=== PATIENT | female | born 1945 | race Caucasian/White ===

== ENCOUNTER 2022-01-20 12:08 | Inpatient (IN) | payer MEDICARE, MEDICAID ==
[~2022-01-20] VITALS: Ht 165 cm; Wt 58.9 kg
[~2022-01-20 12:08] MED LIST: AMOX500C2 PO; CODE118S2 PO; FLT05NA16 NSEACH; PRD20T PO
--- NOTE | 2022-01-20 12:36 | ED General ---
General Chief Complaint: Altered Mental Status Stated Complaint: AMS Nursing Triage Note: ARRIVED VIA EMS FROM [facility] WITH INCREASD AMS. PT ALERT TO PAINFULL STIMULI. SMELLS OF URINE. PT ARRIVED WITH A URINARY CATH. PT ROOMATE IS COVID POSTIVE. PT TESTED NEG FOR COVID TODAY. Source of Information: EMS, Residential Records Exam Limitations: Physical Impairments History of Present Illness Date Seen by Provider: Jan 20, 2022 Time Seen by Provider: 12:22 Initial Comments Patient is a 76-year-old female who presents by ambulance from [facility] with altered mental status. Over the last couple of days per correction report the patient has had decrease in mentation. She has not been eating or drinking. She presents with a Sigala catheter in place that looks like it needs to be exchanged. She is quite tachycardic in the 130's. She is altered, not conversant. She will say yes and no. She denies pain. Lungs are clear, respirations are even and unlabored. She is on nasal cannula oxygen at 92%. Abdomen is nondistended, not really soft. Bowel sounds are present. She has no edema in any of her extremities. She has a patchy area of erythema over the left hip/buttock. No open wounds. Oral mucosa does appear dry. Per report from the correction the patient's roommate has tested COVID- positive. The patient herself had a test today which was negative at the correction. Review of systems, HPI, past medical family and social history unobtainable from the patient secondary to altered mentation. Timing/Duration: 2-3 Days Severity: Severe Allergies and Home Medications Allergies Coded Allergies: No Known Drug Allergies (Unverified , 08/07/13) Patient Home Medication List Home Medication List Reviewed: Yes Amoxicillin (Amoxicillin) 500 Mg Capsule, 2 EACH PO BID Prescribed by: GABRIEL BROWNLEE on 08/07/13 0718 Codeine/Promethazine Hcl (Phenergan/Codeine Syrup) 120 Ml Syrup, 1-2 TSP PO Q8HR PRN Prescribed by: GABRIEL BROWNLEE on 08/07/13 0718 Fluticasone Propionate (Flonase 0.05% Nasal [place]) 16 Gm [place], 2 SPRAYS NSEACH DAILY Prescribed by: GABRIEL BROWNLEE on 08/07/13 0718 Prednisone (Prednisone) 20 Mg Tab, 20 MG PO DAILY Prescribed by: GABRIEL BROWNLEE on 08/07/13 0718 Review of Systems Review of Systems Constitutional: see HPI Unable to obtain from the patient secondary to altered mentation Past Dpavsgx-Hvmtub-Tmxjhw Hx Patient Social History Smoking Status: Unknown if Ever Smoked Substance use?: Unable to obtain Alcohol Use?: Unable to obtain Past Medical History Asthma, COPD Reproductive Disorders: No Sexually Transmitted Disease: No Physical Exam-Suspected Sepsis Physical Exam Vital Signs Vital Signs - First Documented 01/20/22 12:08 Temp 36.1 Pulse 124 Resp 16 B/P (MAP) 124/83 (97) Pulse Ox 98 O2 Delivery Room Air O2 Flow Rate 2.00 Capillary Refill : Less Than 3 Seconds Blood Pressure Mean: 97 Height, Weight, BMI Height: 5'6" Weight: 162lbs. oz. 73.430808af; 21.00 BMI Method:Stated General Appearance: Chronically ill, Thin HEENT: PERRL/EOMI, Other (Very dry oral mucosa; ) Neck: Normal Inspection Respiratory: Lungs Clear, Normal Breath Sounds, No Accessory Muscle Use, No Respiratory Distress Cardiovascular: Regular Rate, Rhythm, Normal Peripheral Pulses, Tachycardia (130) Gastrointestinal: Normal Bowel Sounds, Non Tender, Other (Abdomen is firm) Extremity: Normal Inspection Neurologic/Psychiatric: Disoriented, Other (Answers questions with "yes" or "no"; does not open eyes, does not seem to follow commands) Skin: warm/dry, pallor, rash (Patchy erythema noted to the left hip approximately 4 to 5 cm in diameter, no blisters or open skin wounds are visible); No ulcerations; other (Poor skin turgor) Focused Exam Lactate Level 01/20/22 12:15: Lactic Acid Level 0.96 Lactic Acid Level Progress/Results/Core Measures Suspected Sepsis SIRS Temperature: Pulse: 124 Respiratory Rate: 16 Laboratory Tests 01/20/22 12:15: White Blood Count 13.8H Blood Pressure 124 /83 Mean: 97 01/20/22 12:15: Lactic Acid Level 0.96 Laboratory Tests 01/20/22 12:15: Creatinine 0.79, INR Comment 1.1, Platelet Count 330, Total Bilirubin 0.6 Results/Orders Lab Results Laboratory Tests Test 01/20/22 12:15 01/20/22 19:59 Range/Units White Blood Count 13.8 H 4.3-11.0 10^3/uL Red Blood Count 4.69 3.80-5.11 10^6/uL Hemoglobin 13.9 11.5-16.0 g/dL Hematocrit 44 35-52 % Mean Corpuscular Volume 93 80-99 fL Mean Corpuscular Hemoglobin 30 25-34 pg Mean Corpuscular Hemoglobin Concent 32 32-36 g/dL Red Cell Distribution Width 16.8 H 10.0-14.5 % Platelet Count 330 130-400 10^3/uL Mean Platelet Volume 11.1 9.0-12.2 fL Immature Granulocyte % (Auto) 0 % Neutrophils (%) (Auto) 76 H 42-75 % Lymphocytes (%) (Auto) 11 L 12-44 % Monocytes (%) (Auto) 12 0-12 % Eosinophils (%) (Auto) 1 0-10 % Basophils (%) (Auto) 0 0-10 % Neutrophils # (Auto) 10.5 H 1.8-7.8 10^3/uL Lymphocytes # (Auto) 1.5 1.0-4.0 10^3/uL Monocytes # (Auto) 1.6 H 0.0-1.0 10^3/uL Eosinophils # (Auto) 0.1 0.0-0.3 10^3/uL Basophils # (Auto) 0.1 0.0-0.1 10^3/uL Immature Granulocyte # (Auto) 0.0 0.0-0.1 10^3/uL Prothrombin Time 14.9 H 12.2-14.7 SEC INR Comment 1.1 0.8-1.4 Activated Partial Thromboplast Time 35 24-35 SEC Sodium Level 142 135-145 MMOL/L Potassium Level 4.9 3.6-5.0 MMOL/L Chloride Level 101 98-107 MMOL/L Carbon Dioxide Level 24 21-32 MMOL/L Anion Gap 17 H 5-14 MMOL/L Blood Urea Nitrogen 17 7-18 MG/DL Creatinine 0.79 0.60-1.30 MG/DL Estimat Glomerular Filtration Rate 77 BUN/Creatinine Ratio 22 Glucose Level 113 H 70-105 MG/DL Lactic Acid Level 0.96 0.50-2.00 MMOL/L Calcium Level 9.6 8.5-10.1 MG/DL Corrected Calcium 10.1 8.5-10.1 MG/DL Total Bilirubin 0.6 0.1-1.0 MG/DL Aspartate Amino Transf (AST/SGOT) 25 5-34 U/L Alanine Aminotransferase (ALT/SGPT) 10 0-55 U/L Alkaline Phosphatase 68 40-136 U/L Total Protein 7.1 6.4-8.2 GM/DL Albumin 3.4 3.2-4.5 GM/DL SARS-CoV-2 RNA (RT-PCR) Not Detected Not Detecte Urine Color YELLOW Urine Clarity CLOUDY Urine pH 6.0 5-9 Urine Specific [place] >=1.030 1.016-1.022 Urine Protein TRACE H NEGATIVE Urine Glucose (UA) NEGATIVE NEGATIVE Urine Ketones 1+ H NEGATIVE Urine Nitrite NEGATIVE NEGATIVE Urine Bilirubin 2+ H NEGATIVE Urine Urobilinogen 1.0 < = 1.0 MG/DL Urine Leukocyte Esterase 1+ H NEGATIVE Urine RBC (Auto) 2+ H NEGATIVE Urine RBC 5-10 H /HPF Urine WBC 25-50 H /HPF Urine Squamous Epithelial Cells 0-2 /HPF Urine Renal Epithelial Cells NONE /HPF Urine Crystals NONE /LPF Urine Bacteria MODERATE H /HPF Urine Casts NONE /LPF Urine Mucus SMALL H /LPF Urine Culture Indicated CULTURE PENDING My Orders Orders - MICHAEL COOK MD Cbc With Automated Diff (01/20/22 12:31) Comprehensive Metabolic Panel (01/20/22 12:31) Blood Culture (01/20/22 12:31) Sputum Culture (01/20/22 12:31) Urinalysis (01/20/22 12:31) Urine Culture (01/20/22 12:31) Protime With Inr (01/20/22 12:31) Partial Thromboplastin Time (01/20/22 12:31) Chest 1 View, Ap/Pa Only (01/20/22 12:31) Ed Iv/Invasive Line Start (01/20/22 12:31) Ed Iv/Invasive Line Start (01/20/22 12:31) Vital Signs Adult Sepsis Patie Q15M (01/20/22 12:31) O2 (01/20/22 12:31) Remove Rings In Anticipation O (01/20/22 12:31) Lactic Acid Analyzer (01/20/22 12:31) Catheter(Urinary) Insert & Ass 03,15 (01/20/22 12:31) Ekg Tracing (01/20/22 12:31) Ns Iv 1000 Ml (Sodium Chloride 0.9%) (01/20/22 12:45) Covid 19 Inhouse Test (01/20/22 12:36) Isolation Central Supply Req (01/20/22 12:36) Ns Iv 1000 Ml (Sodium Chloride 0.9%) (01/20/22 14:00) Ceftriaxone 1 Gm Pre-Mix (Rocephin 1 Gm (01/20/22 15:00) Ed Admission (Communication) (01/20/22 15:26) Vital Signs/I&O 01/20/22 01/20/22 01/20/22 01/20/22 18:32 18:37 19:00 19:53 Temp 36.2 Pulse 100 104 104 Resp 20 B/P (MAP) 123/58 (79) Pulse Ox 95 O2 Delivery Nasal Cannula Nasal Cannula O2 Flow Rate 2.00 2.00 01/21/22 01/21/22 01/21/22 00:36 01:00 03:28 Temp 36.2 36.4 Pulse 107 103 105 Resp 18 18 B/P (MAP) 161/73 (102) 130/58 (82) Pulse Ox 97 95 O2 Delivery Nasal Cannula Nasal Cannula O2 Flow Rate 2.00 2.00 01/21/22 00:00 Intake Total 2000 ml Balance 2000 ml Capillary Refill : Less Than 3 Seconds Blood Pressure Mean: 97 Progress Note #1: Time: 14:46 Progress Note Went into reassess patient, she is a little bit more alert however slurred speech. She seems to be making some sense and did agree to a sip of water. Her fluids were not wide open so the second liter is now running at a liter an hour. Her heart rate is down to 99-105. Blood pressure is good. She has only about 2 to 3 mL of urine in the Sigala tubing. It is quite cloudy and thick in appea jared. I am going to BladderScan her and see if she has any retention. I am going to go ahead and give her some Rocephin. Anticipate that we will need to admit her for IV antibiotics due to her altered mental status. Progress Note #2: Time: 15:20 Progress Note Case discussed initially with Dr. Kemp thinking the patient was a [facility] patient however on review of the correction records she actually belongs to Lencho Perdomo MD. Discussed with Dr. Julian for admission. He recommends inpatient admission for sepsis due to UTI with her elevated white count and tachycardia. Rocephin has been given, 2 L have been given, he is going to do que'd orders. ECG Initial ECG Impression Date: Jan 20, 2022 Initial ECG Impression Time: 12:40 Initial ECG Rate: 120 Initial ECG Rhythm: S.Tach Initial ECG Intervals: Normal Initial ECG Impression: Nonspecific Changes Comment Nonspecific ST-T wave changes inferior and anteriorly with slight depression noted in V3 V4 and V5. PVCs are noted. Diagnostic Imaging Diagonstic Imaging: Xray Plain Films/CT/US/NM/MRI: chest Comments [facility], [place] NAME: OSMIN HURST [facility] REC#: [id number] PT STATUS: REG ER : 1945 PHYSICIAN: MICHAEL COOK MD ADMIT DATE: 01/20/22/ER Draft Date of Exam:01/20/22 CHEST 1 VIEW, AP/PA ONLY Indication: Altered metal status. Time of Exam: 1:21 PM No prior studies are available for comparison. Heart size normal. Lungs show some hyperinflation. There are changes of COPD. No infiltrate is detected. No effusion or pneumothorax. Impression: COPD. No acute cardiopulmonary process is detected. Dictated on workstation # [id number] Dict: 01/20/22 1342 Trans: 01/20/22 1345 CV [id number] Interpreted by: KAMARI RED MD Electronically signed by: Departure Communication (Admissions) Time/Spoke to Admitting Phy: 15:[address] Julian Impression Primary Impression: Dehydration Additional Impressions: Sepsis Qualified Codes: A41.9 - Sepsis, unspecified organism UTI (urinary tract infection) Qualified Codes: T83.511A - Infection and inflammatory reaction due to indwelling urethral catheter, initial encounter; N39.0 - Urinary tract infection, site not specified Disposition: ADMITTED INPATIENT Condition: Stable Admissions Decision to Admit Reason: Admit from ER (General) Decision to Admit/Date: Jan 20, 2022 Time/Decision to Admit Time: 15:20 Departure-Patient Inst. Referrals: [facility] (PCP[facility]Family) Primary Care Physician MICHAEL COOK MD Jan 20, 2022 12:36
[2022-01-20 12:41] LABS: BASOPHILS # (AUTO) 0.1 10^3/uL (0.0-0.1); BASOPHILS % (AUTO) 0 % (0-10); EOSINOPHILS # (AUTO) 0.1 10^3/uL (0.0-0.3); EOSINOPHILS % (AUTO) 1 % (0-10); HEMATOCRIT 44 % (35-52); HEMOGLOBIN 13.9 g/dL (11.5-16.0); LYMPHOCYTES # (AUTO) 1.5 10^3/uL (1.0-4.0); LYMPHOCYTES % (AUTO) 11 % (12-44); MEAN CORPUSCULAR HEMOGLOBIN 30 pg (25-34); MEAN CORPUSCULAR HGB CONC 32 g/dL (32-36); MEAN CORPUSCULAR VOLUME 93 fL (80-99); MEAN PLATELET VOLUME 11.1 fL (9.0-12.2); MONOCYTES # (AUTO) 1.6 10^3/uL (0.0-1.0); MONOCYTES % (AUTO) 12 % (0-12); NEUTROPHILS # (AUTO) 10.5 10^3/uL (1.8-7.8); NEUTROPHILS % (AUTO) 76 % (42-75); PLATELET COUNT 330 10^3/uL (130-400); WHITE BLOOD COUNT 13.8 10^3/uL (4.3-11.0)
[2022-01-20] MEDS ORDERED: NS IV 1000 ML 1,000 ML IV SCH ×2 (12:45→14:00)
[2022-01-20 12:51] LABS: ALBUMIN 3.4 GM/DL (3.2-4.5)
[2022-01-20 12:52] LABS: POTASSIUM 4.9 MMOL/L (3.6-5.0)
[2022-01-20 12:53] LABS: CALCIUM 9.6 MG/DL (8.5-10.1); INR 1.1 (0.8-1.4); PROTHROMBIN TIME PATIENT 14.9 SEC (12.2-14.7)
[2022-01-20 12:54] LABS: TOTAL PROTEIN 7.1 GM/DL (6.4-8.2)
[2022-01-20 12:56] LABS: BILIRUBIN,TOTAL 0.6 MG/DL (0.1-1.0)
[2022-01-20 12:58] LABS: CREATININE SERUM 0.79 MG/DL (0.60-1.30)
--- NOTE | 2022-01-20 13:45 | Diagnostic Imaging Report ---
Indication: Altered metal status. Time of Exam: 1:21 PM No prior studies are available for comparison. Heart size normal. Lungs show some hyperinflation. There are changes of COPD. No infiltrate is detected. No effusion or pneumothorax. Impression: COPD. No acute cardiopulmonary process is detected. Dictated by: Dictated on workstation # [id number]
[2022-01-20] MEDS ORDERED: cefTRIAXone 1 GM PRE-MIX 50 ML IV ONE (15:00)
[2022-01-20] MEDS ORDERED: NS IV 500 ML 500 ML IV PRN (17:45)
[2022-01-20] MEDS ORDERED: ONDANSETRON 4 MG (ZOFRAN) ORAL DISSOLVE TAB PO PRN (17:45)
[2022-01-20] MEDS ORDERED: MELATONIN 3 MG TABLET PO PRN (17:45)
[2022-01-20] MEDS ORDERED: polyethylene glycoL POWDER 17 GM (MIRALAX) PACK PO PRN (17:45)
[2022-01-20] MEDS ORDERED: CALCIUM CARBONATE 500 MG (TUMS) TAB.CHEW PO PRN (17:45)
[2022-01-20] MEDS ORDERED: ANTACID SUSP 30 ML UDC (MYLANTA) PO PRN (17:45)
[2022-01-20] MEDS ORDERED: diphenhydrAMINE 50 MG/ML INJ (BENADRYL) IVP PRN (17:45)
[2022-01-20] MEDS ORDERED: diphenhydrAMINE 25 MG TAB (BENADRYL) PO PRN (17:45)
[2022-01-20] MEDS ORDERED: ONDANSETRON 4 MG/2 ML (SDV) Z0FRAN IV PRN (17:45)
[2022-01-20] MEDS ORDERED: cefTRIAXone 1 GM PRE-MIX 50 ML IV SCH (17:45)
[2022-01-20] MEDS: NS IV 1000 ML 1,000 ML IV SCH (18:53)
[2022-01-20 19:53] VITALS: BP 123/58
[2022-01-20 20:02] LABS: BILIRUBIN,URINE 2+ (NEGATIVE); CLARITY,URINE CLOUDY; COLOR,URINE YELLOW; GLUCOSE, URINE (UA) NEGATIVE (NEGATIVE); KETONES,URINE 1+ (NEGATIVE); LEUKOCYTE ESTERASE ,URINE 1+ (NEGATIVE); NITRITE,URINE NEGATIVE (NEGATIVE); PROTEIN,URINE TRACE (NEGATIVE)
[2022-01-20 20:13] LABS: BACTERIA,URINE MODERATE /HPF; SQUAMOUS EPITHELIAL CELL,UR 0-2 /HPF; WBC,URINE 25-50 /HPF
[2022-01-20] MEDS: SENNOSIDES 8.6 MG (SENOKOT) TAB PO SCH (21:44)
[2022-01-20] MEDS: DOCUSATE SODIUM 100 MG (COLACE) CAP PO SCH (21:44)
[2022-01-21] VITALS (8 sets, daily range): BP systolic 101–161; BP diastolic 52–73
[2022-01-21] MEDS: NS IV 1000 ML 1,000 ML IV SCH ×4 (04:15→23:30)
[2022-01-21 06:44] LABS: BASOPHILS # (AUTO) 0.1 10^3/uL (0.0-0.1); BASOPHILS % (AUTO) 1 % (0-10); EOSINOPHILS # (AUTO) 0.2 10^3/uL (0.0-0.3); EOSINOPHILS % (AUTO) 2 % (0-10); HEMATOCRIT 35 % (35-52); HEMOGLOBIN 10.8 g/dL (11.5-16.0); LYMPHOCYTES # (AUTO) 1.5 10^3/uL (1.0-4.0); LYMPHOCYTES % (AUTO) 16 % (12-44); MEAN CORPUSCULAR HEMOGLOBIN 30 pg (25-34); MEAN CORPUSCULAR HGB CONC 31 g/dL (32-36); MEAN CORPUSCULAR VOLUME 96 fL (80-99); MEAN PLATELET VOLUME 10.7 fL (9.0-12.2); MONOCYTES # (AUTO) 1.2 10^3/uL (0.0-1.0); MONOCYTES % (AUTO) 13 % (0-12); NEUTROPHILS # (AUTO) 6.3 10^3/uL (1.8-7.8); NEUTROPHILS % (AUTO) 68 % (42-75); PLATELET COUNT 255 10^3/uL (130-400); WHITE BLOOD COUNT 9.3 10^3/uL (4.3-11.0)
[2022-01-21 06:56] LABS: POTASSIUM 3.6 MMOL/L (3.6-5.0)
[2022-01-21 06:58] LABS: CALCIUM 8.4 MG/DL (8.5-10.1)
[2022-01-21 07:02] LABS: CREATININE SERUM 0.57 MG/DL (0.60-1.30)
[2022-01-21 07:04] LABS: MAGNESIUM 1.5 MG/DL (1.6-2.4)
[2022-01-21] MEDS: MAGNESIUM 1 GM/100 ML IVPB 100 ML IV SCH ×3 (07:22→12:39)
[2022-01-21] MEDS: KCL 20 MEQ TAB (K-DUR) PO SCH (07:22)
[2022-01-21] MEDS: POTASSIUM CL 10MEQ/50ML IVPB 50 ML IV SCH ×3 (07:22→10:32)
[2022-01-21] MEDS: SENNOSIDES 8.6 MG (SENOKOT) TAB PO SCH ×2 (08:45→21:01)
[2022-01-21] MEDS: CEFEPIME INJECTION 1,000 MG in NS (IVPB) 50 ML IV SCH ×2 (08:45→15:56)
[2022-01-21] MEDS: DOCUSATE SODIUM 100 MG (COLACE) CAP PO SCH ×2 (08:45→21:01)
[2022-01-21] MEDS: ENOXAPARIN 40 MG/0.4 ML (LOVENOX) SYR SQ SCH (08:46)
--- NOTE | 2022-01-21 11:43 | Occupational Therapy Eval ---
OT Evaluation-General/PLF Medical Diagnosis Admission Date Jan 20, 2022 at 15:30 Medical Diagnosis: dehydration Onset Date: Jan 20, 2022 Therapy Diagnosis Therapy Diagnosis: decreased ADL Status Height/Weight Height (Feet): 5 Height (Inches): 6 Weight (Pounds): 162 Precautions Precautions/Isolations: Contact Isolation, Droplet Isolation, Fall Prevention Referral Physician: Eliel Referral Reason: Evaluation/Treatment Medical History Current History ED from [facility], dx with dehydration. Her roommate is COVID positive, pt tested negative in ED. Social History Home: Snf ADL-Prior Level of Function SCALE: Activities may be completed with or without assistive devices. 8-Towrikkyks-qlkvanz completes the activity by him/herself with no assistance from a helper. 5-Set-up or Clean-up Assistance-helper sets up or cleans up; patient completes activity. [place] assists only prior to or following the activity. 4-Supervision or Touching Assistance-helper provides verbal cues and/or touching/steadying and/or contact guard assistance as patient completes activity. Assistance may be provided throughout the activity or intermittently. 3-Partial/Moderate Assistance-helper does LESS THAN HALF the effort. [place] lifts, holds or supports trunk or limbs, but provides less than half the effort. 2-Substantial/Maximal Assistance-helper does MORE THAN HALF the effort. [place] lifts or holds trunk or limbs and provides more than half the effort. 1-Iteuuusbp-getpkp does ALL the effort. Patient does none of the effort to complete the activity. Or, the assistance of 2 or more helpers is required for the patient to complete the activity. If activity was not attempted, code reason: 7-Patient Refused. 9-Not Applicable-not attempted and the patient did not perform the activity before the current illness, exacerbation or injury. 10-Not Attempted due to Environmental Limitations-(lack of equipment, weather restraints, etc.). 88-Not Attempted due to Medical Conditions or Safety Concerns. ADL PLOF Comments OT talked with staff at [facility]. Staff indicate pt doesn't willing do much, requires jennifer transfer due to pain in legs. She requires total assist with self care. She is typically able to feed herself with set up assistance, but only when she wants to. Self Care: Dependent Functional Cognition: Unknown OT Current Status Subjective Pt in bed, agreeable to OT Tx, but when encouraged to actively participate she kept telling OT "you're crazy". During bed mobility, pt stated "Fuck You" multiple times, and after rolling stopped, she told this therapist she was going to [place]. Nurse Adam, present throughout treatment. Education provided on importance of skin care and removing soiled linens. Mental Status/Objective Patient Orientation: Person Attachments: Sigala Catheter, IV, Oxygen, Telemetry Current Upper Extremity ROM Assessment attempted but pt reluctant to complete. OT attempted to perform PROM, but pt would not let OT move her arms. Upper Extremity Strength unable to assess ADL-Treatment Eating (QC): 3 (Feeding assist per nurse) Shower/Bathe Self (QC): 1 (Per clinical judgment) Lower Body Dressing (QC): 1 (Per clinical judgment) On/Off Footwear (QC): 1 (Per clinical judgment) Toileting Hygiene (QC): 1 (Assist x2 bed level.) Other Treatments Pt in bed, agreeable to OT tx. Pt attempted to provide information about PLOF, but pt indicates she is w/c level, able to perform some walking, and independent with ADLS. OT talked with staff at the [facility] who indicate pt is a jennifer transfer, requiring total assist with ADLS, and doesn't willingly do much. She is able to feed herself with set up when she wants to. OT noted pt was soiled with urine, pt indicated this wasn't true due to catheter. OT attempted to redirect pt to importance of skin care, but pt didn't seem to listen. Pt's nurse Adam present during tx. Total assist to roll side to side in order for linens to change and hygiene to be performed. Assist x2 required for hygiene (1 for rolling and 1 for hygiene). During rolling, pt stated "Fuck you" multiple times. OT assisted pt to comfort with pillow between her legs. Pt then told therapist she was going to [place]. OT attempted education again, but pt kept talking over OT. Post tx, pt in bed, call light in reach and all needs met. Education OT Patient Education: Correct positioning, Modified ADL techniques, Progress toward Goal/Update tx plan, Purpose of tx/functional activities, Rehab process Teaching Recipient: Patient Teaching Methods: Discussion Response to Teaching: Reinforcement Needed OT Long-Term Goals Photographer Helper Goals 1=Demonstrate adherence to instructed precautions during ADL tasks. 2=Patient will verbalize/demonstrate understanding of assistive devices/modifications for ADL. 3=Patient will improve strength/tolerance for activity to enable patient to perform ADL's. OT Education/Plan Problem List/Assessment Assessment: No Skilled OT Needs ID'd No skilled OT Services indicated at this time. Pt is from [place], requiring total assist with ADLs and jennifer lift at baseline. Pt is currently at [facility] and reluctant to participate in txs. D/C from OT services. Discharge Recommendations Plan/Recommendations: Discharge/Goals Met Treatment Plan/Plan of Care Patient would benefit from OT for education, treatment and training to promote independence in ADL's, mobility, safety and/or upper extremity function for ADL's. Plan of Care: ADL Retraining, Functional Mobility Treatment Duration: Jan 21, 2022 Frequency: 1 time per week (eval only) Estimated Hrs Per Day: .25 hour per day Rehab Potential: Guarded Time/GCodes Start Time: 11:09 Stop Time: 11:26 Total Time Billed (hr/min): 17 Billed Treatment Time 1, ANTHONY SOW OT Jan 21, 2022 11:43
--- NOTE | 2022-01-21 13:44 | Physical Therapy Evaluation ---
PT Evaluation-General Medical Diagnosis Admission Date Jan 20, 2022 at 15:30 Medical Diagnosis: dehydration Onset Date: Jan 20, 2022 Therapy Diagnosis Therapy Diagnosis: Gait deficit, strength deficit, failure to thrive Height/Weight Height (Feet): 5 Height (Inches): 6 Weight (Pounds): 162 Precautions Precautions/Isolations: Contact Isolation, Droplet Isolation, Fall Prevention Weight Bear Status Right Lower Extremity: Right Weight Bearing/Tolerated Left Lower Extremity: Left Weight Bearing/Tolerated Referral Physician: Eliel Reason for Referral: Evaluation/Treatment Medical History Reviewed History: Yes Social History Home: Intermediate Prior Prior Level of Function SCALE: Activities may be completed with or without assistive devices. 9-Uxshhvgpdq-ekeetpf completes the activity by him/herself with no assistance from a helper. 5-Set-up or Clean-up Assistance-helper sets up or cleans up; patient completes activity. [place] assists only prior to or following the activity. 4-Supervision or Touching Assistance-helper provides verbal cues and/or touching/steadying and/or contact guard assistance as patient completes activity. Assistance may be provided throughout the activity or intermittently. 3-Partial/Moderate Assistance-helper does LESS THAN HALF the effort. [place] lifts, holds or supports trunk or limbs, but provides less than half the effort. 2-Substantial/Maximal Assistance-helper does MORE THAN HALF the effort. [place] lifts or holds trunk or limbs and provides more than half the effort. 2-Mbrrtelnk-nuguqb does ALL the effort. Patient does none of the effort to complete the activity. Or, the assistance of 2 or more helpers is required for the patient to complete the activity. If activity was not attempted, code reason: 7-Patient Refused. 9-Not Applicable-not attempted and the patient did not perform the activity before the current illness, exacerbation or injury. 10-Not Attempted due to Environmental Limitations-(lack of equipment, weather restraints, etc.). 88-Not Attempted due to Medical Conditions or Safety Concerns. Bed Mobility: 1 Transfers (B,C,W/C): 1 Gait: 9 Stairs: 9 OT contacted [facility] and they report the patient is dependent upon staff for all ADLs and is a jennifer lift transfer. PT Evaluation-Current Subjective Patient lying supine in bed upon PT arrival, incontinent. Patient agreeable to treatment but yells and swears throughout. Objective Patient Orientation: Person Attachments: Oxygen, Sigala Catheter, IV ROM/Strength ROM Lower Extremities Limited due to pain and cognition Strength Lower Extremities Patient unable to follow commands to accurately assess MMT. Sensory Vision: Functional Hearing: Functional Sensation Right Lower Extremit: Impaired Sensation Left Lower Extremity: Impaired Sensation Lower Extremities Unable to accurately assess sensation as most all palpation result in patient report of pain and subsequent yelling. Transfers Roll Left to Right (QC): 1 Sit to Lying (QC): 1 Lying to Sitting/Side of Bed(Q: 1 Gait Does the Patient Walk?: No and Walking Goal NOT indicated Mode of Locomotion: Wheelchair Anticipated Mode of Locomotion: Wheelchair Balance Sitting Static: Poor Sitting Dynamic: Poor Assessment/Needs Patient tolerated treatment poorly. She requires total assistance for all bed mobility, max A/total A to maintain sitting on the edge of the bed. Patient leans retropulsively and to the left.despite frequent verbal and tactile cues. Patient returns to bed, initially without warning, however she is unable to elevate her LEs independetly and then requires max/ Total A. Patient in bed post treatment with al needs met, nursing notified, call light in hand, and chair alarm activated. Rehab Potential: Poor PT Plan Problem List Problem List: Activity Tolerance, Functional Strength, Safety, Balance, Gait, Transfer, Bed Mobility, ROM Treatment/Plan Treatment Plan: Discontinue PT Treatment Duration: Jan 21, 2022 Frequency: Estimated Hrs Per Day: Other Safety Risks/Education Patient Education: Transfer Techniques Teaching Recipient: Patient Teaching Methods: Demonstration, Discussion Response to Teaching: Reinforcement Needed Discharge Recommendations Target Placement Return to [facility] Time/GCodes Time In: 1311 Time Out: 1335 Total Billed Treatment Time: 26 Total Billed Treatment Visit, SANDY EVERETT JOHN A PT Jan 21, 2022 13:44
[2022-01-21] MEDS ORDERED: POTA-51 PO (13:46)
[2022-01-21] MEDS ORDERED: ACET325T38 PO (13:46)
[2022-01-21] MEDS ORDERED: ONDA4TAB11 PO (13:46)
[2022-01-21] MEDS ORDERED: LORA10CA PO (13:46)
[2022-01-21] MEDS ORDERED: ALPR1TAB7 PO (13:46)
[2022-01-21] MEDS ORDERED: RT-ALBUINH IH (13:47)
--- NOTE | 2022-01-21 16:51 | History & Physical-Hospitalist ---
History of Present Illness HPI/Chief Complaint Tiffany Grimaldo is a 76 year old female who presented from [facility] with altered mental status. She has been less responsive over recent days. She has a chronic cabrera catheter in place. She is a poor historian. Her family was unable to be reached by phone. She was found to be dehydrated with a urinary tract infection. She has been admitted for IV antibiotics and fluids. She tells me that she does not like taking medicines. She denies pain. She is confused. Source: patient, RN/MD Exam Limitations: clinical condition Date Seen 01/21/22 Time Seen by a Provider: 11:30 Attending Physician eLncho Perdomo MD PCP Admitting Physician: Mario Paredes MD Attending Physician: Mario Paredes MD Referring Physician Date of Admission Jan 20, 2022 at 15:30 Home Medications & Allergies Home Medications Reviewed patient Home Medication Reconciliation performed by pharmacy medication reconciliations camera repair technician and/or nursing. Patients Allergies have been reviewed. Allergies Allergies Coded Allergies No Known Drug Allergies (Unverified08/07/13) Past Zldtapp-Fvvcko-Kaodnu Hx Patient Social History Tobacco Use?: No Smoking Status: Unknown if Ever Smoked Use of E-Cig and/or Vaping dev: No Substance use?: No Alcohol Use?: No Pt feels they are or have been: No Immunizations Up To Date Tetanus Booster (TDap): Unknown Date of Pneumonia Vaccine: Mar 22, 2010 Current Status status: No status: No Advance Directives: Unable to obtain Advance Directive Location: Copy placed in chart Communicates: Verbally Primary Language: Thai Preferred Spoken Language: Thai Is interpretation needed?: No Implanted or Applied Medical D: Other Past Medical History Asthma, COPD Sexually Transmitted Disease: No Family Medical History unable to obtain Review of Systems Constitutional: see HPI Physical Exam Physical Exam Vital Signs Vital Signs - First Documented 01/20/22 12:08 Temp 36.1 Pulse 124 Resp 16 B/P (MAP) 124/83 (97) Pulse Ox 98 O2 Delivery Room Air O2 Flow Rate 2.00 Capillary Refill : Less Than 3 Seconds Height, Weight, BMI Height: 5'6" Weight: 162lbs. oz. 73.135950wq; 21.63 BMI Method:Stated General Appearance: No Apparent Distress, WD/WN HEENT: PERRL/EOMI, Pharynx Normal Neck: Normal Inspection, Supple Respiratory: Lungs Clear, Normal Breath Sounds, No Respiratory Distress Cardiovascular: Regular Rate, Rhythm, No Edema, No Murmur Gastrointestinal: Normal Bowel Sounds, Non Tender, Soft Extremity: Normal Inspection, Non Tender, No Pedal Edema Neurologic/Psychiatric: Alert, Disoriented, Motor Weakness Skin: Normal Color, Warm/Dry Results Results/Procedures Labs Laboratory Tests 01/20/22 12:15 01/21/22 05:58 Patient resulted labs reviewed. Imaging: Reviewed Imaging Report Assessment/Plan Admission Diagnosis Sepsis due to UTI Admission Status: Inpatient Order (span 2 midnights) Reason for Inpatient Admission: IV antibiotics and fluids Assessment and Plan Sepsis due to UTI LONNIE SIRS+ with leukocytosis and tachycardia UA consistent with UTI Urine culture with Pseudomonas (probable) Started on Rocephin Transition to Cefepime Await final culture results IV fluids DVT prophylaxis: Lovenox Diagnosis/Problems Diagnosis/Problems (1) Sepsis due to urinary tract infection Status: Acute (2) LONNIE (acute kidney injury) Status: Acute MARIO PAREDES MD Jan 21, 2022 16:51
[2022-01-21] MEDS: ALPRAZolam 1 MG (XANAX) TAB PO SCH (21:00)
[2022-01-21] MEDS: ACETAMINOPHEN 325 MG TABLET PO PRN (21:01)
[2022-01-22] MEDS: CEFEPIME INJECTION 1,000 MG in NS (IVPB) 50 ML IV SCH ×3 (00:32→15:35)
[2022-01-22 03:44] VITALS: BP 122/59
[2022-01-22 05:57] LABS: BASOPHILS # (AUTO) 0.1 10^3/uL (0.0-0.1); BASOPHILS % (AUTO) 1 % (0-10); EOSINOPHILS # (AUTO) 0.4 10^3/uL (0.0-0.3); EOSINOPHILS % (AUTO) 5 % (0-10); HEMATOCRIT 33 % (35-52); HEMOGLOBIN 10.6 g/dL (11.5-16.0); LYMPHOCYTES # (AUTO) 1.7 10^3/uL (1.0-4.0); LYMPHOCYTES % (AUTO) 25 % (12-44); MEAN CORPUSCULAR HEMOGLOBIN 30 pg (25-34); MEAN CORPUSCULAR HGB CONC 32 g/dL (32-36); MEAN CORPUSCULAR VOLUME 95 fL (80-99); MEAN PLATELET VOLUME 10.7 fL (9.0-12.2); MONOCYTES # (AUTO) 0.8 10^3/uL (0.0-1.0); MONOCYTES % (AUTO) 12 % (0-12); NEUTROPHILS % (AUTO) 57 % (42-75); PLATELET COUNT 231 10^3/uL (130-400)
[2022-01-22 06:06] LABS: ALBUMIN 2.6 GM/DL (3.2-4.5); POTASSIUM 3.3 MMOL/L (3.6-5.0)
[2022-01-22 06:07] LABS: CALCIUM 8.4 MG/DL (8.5-10.1)
[2022-01-22 06:08] LABS: TOTAL PROTEIN 5.2 GM/DL (6.4-8.2)
[2022-01-22 06:10] LABS: BILIRUBIN,TOTAL 0.5 MG/DL (0.1-1.0)
[2022-01-22 06:12] LABS: CREATININE SERUM 0.45 MG/DL (0.60-1.30)
[2022-01-22 06:15] LABS: MAGNESIUM 1.7 MG/DL (1.6-2.4)
[2022-01-22] MEDS: POTASSIUM CL 10MEQ/50ML IVPB 50 ML IV SCH (06:23)
[2022-01-22] MEDS: MAGNESIUM 1 GM/100 ML IVPB 100 ML IV SCH ×3 (06:23→08:53)
[2022-01-22] MEDS: KCL 20 MEQ TAB (K-DUR) PO SCH (06:24)
[2022-01-22 08:12] VITALS: BP 130/62
[2022-01-22] MEDS: LORATADINE (CLARITIN) 10 MG TAB PO SCH (08:53)
[2022-01-22] MEDS: DOCUSATE SODIUM 100 MG (COLACE) CAP PO SCH ×2 (08:54→20:06)
[2022-01-22] MEDS: SENNOSIDES 8.6 MG (SENOKOT) TAB PO SCH ×2 (08:54→20:07)
[2022-01-22] MEDS: ALPRAZolam 1 MG (XANAX) TAB PO SCH (08:54)
[2022-01-22] MEDS: ENOXAPARIN 40 MG/0.4 ML (LOVENOX) SYR SQ SCH (08:55)
[2022-01-22] MEDS ORDERED: KCL 20 MEQ TAB (K-DUR) PO ONE ×2 (09:00→11:00)
[2022-01-22] MEDS: ALPRAZolam 0.5 MG (XANAX) TAB PO SCH ×3 (09:32→20:06)
[2022-01-22] MEDS: NS IV 1000 ML 1,000 ML IV SCH ×2 (10:09→15:35)
[2022-01-22 11:08] VITALS: BP 128/58
[2022-01-22 15:39] VITALS: BP 120/56
--- NOTE | 2022-01-22 16:36 | Progress Note - Hospitalist ---
Subjective HPI/CC On Admission Date Seen by Provider: Jan 22, 2022 Time Seen by Provider: 11:25 Tiffany Grimaldo is a 76 year old female who presented from [facility] with altered mental status. She has been less responsive over recent days. She has a chronic cabrera catheter in place. She is a poor historian. Her family was unable to be reached by phone. She was found to be dehydrated with a urinary tract infection. She has been admitted for IV antibiotics and fluids. She tells me that she does not like taking medicines. She denies pain. She is confused. Subjective/Events-last exam She is sleeping. She has no complaints. She denies pain. She is not short of breath. Focused Exam Lactate Level 01/20/22 12:15: Lactic Acid Level 0.96 Objective Exam Vital Signs Vital Signs Date Time Temp Pulse Resp B/P (MAP) Pulse Ox O2 Delivery O2 Flow Rate FiO2 01/22/22 15:39 37.1 109 18 120/56 (77) 98 Nasal Cannula 1.50 Capillary Refill : Less Than 3 Seconds General Appearance: No Apparent Distress, Chronically ill Respiratory: Lungs Clear, No Respiratory Distress Cardiovascular: Regular Rate, Rhythm, No Murmur Gastrointestinal: Normal Bowel Sounds, Non Tender, Soft Extremity: Normal Inspection, No Pedal Edema Neurologic/Psychiatric: Alert, Depressed Affect Skin: Normal Color, Warm/Dry Results/Procedures Lab Laboratory Tests 01/22/22 05:10 Patient resulted labs reviewed. Imaging: Reviewed Imaging Report Assessment/Plan Assessment and Plan Assess & Plan/Chief Complaint Pseudomonas UTI Urine culture with Pseudomonas, resistant to Levaquin Continue Cefepime Swing bed evaluation DVT prophylaxis: Lovenox Sepsis, resolved LONNIE, resolved Diagnosis/Problems Diagnosis/Problems (1) Pseudomonas urinary tract infection Status: Acute (2) Sepsis due to urinary tract infection Status: Resolved Resolution Date/Time: 01/22/22 @ 16:37 (3) LONNIE (acute kidney injury) Status: Resolved Resolution Date/Time: 01/22/22 @ 16:37 MARIO PAREDES MD Jan 22, 2022 16:36
--- NOTE | 2022-01-22 19:33 | Physician Query Clarification ---
Physician Query-General Query to Physician: The medical record reflects the following clinical scenario: The patient, in the setting of History/Risk factors, "Sepsis due to UTI", in manager intermediate care facility, Confused Clinical Findings Has chronic indwelling urinary catheter, UA pos for Pseudomonas aeruginosa, Treatment Urinary cath removed and replaced in ER, IV aBX, Question: Can you specify if the UTI is due to/associated with indwelling urinary catheter? Yes -UTI is due to/associated with indwelling urinary catheter No -UTI is not due to/associated with indwelling urinary catheter Other, with explanation of the clinical findings Clinically undetermined, no explanation for the clinical findings Please clarify and document your clinical opinion in the Progress Notes and Discharge Summary including the definitive and/or presumptive diagnosis, (suspected or probable), related to the above clinical findings. Please include clinical findings supporting your diagnosis. In responding to this query, please exercise your independent professional judgment. The purpose of this communication is to more accurately reflect the complexity of your patients condition. The fact that a question is asked does not imply that any particular answer is desired or expected. Thank you for timely response to this clarification. Radha Hirsch RN, MSN Clinical Hr Internship [phone] [email or web address] PHYSICIAN RESPONSE: Based on the clinical findings in the record, please respond to the query above on this document as an addendum. Physician Response: Physician Response Yes If you have questions please contact: Director On Air: Ext: Thank you for your time and cooperation. Clinical [facility]r Internship/Director On Air This is a permanent part of the medical record RADHA HIRSCH Jan 22, 2022 19:33 MARIO PAREDES MD Jan 26, 2022 20:53
[2022-01-22 20:00] VITALS: BP 116/56
[2022-01-22] MEDS: ACETAMINOPHEN 325 MG TABLET PO PRN (20:06)
[2022-01-23] VITALS: BP 112/64
[2022-01-23] MEDS: CEFEPIME INJECTION 1,000 MG in NS (IVPB) 50 ML IV SCH ×2 (00:15→08:53)
[2022-01-23] MEDS: NS IV 1000 ML 1,000 ML IV SCH ×3 (03:30→13:25)
[2022-01-23 04:41] VITALS: BP 148/70
[2022-01-23] MEDS: KCL 20 MEQ TAB (K-DUR) PO SCH (06:00)
[2022-01-23] MEDS: POTASSIUM CL 10MEQ/50ML IVPB 50 ML IV SCH (06:00)
[2022-01-23] MEDS: MAGNESIUM 1 GM/100 ML IVPB 100 ML IV SCH (06:00)
[2022-01-23 06:07] LABS: BASOPHILS # (AUTO) 0.1 10^3/uL (0.0-0.1); BASOPHILS % (AUTO) 1 % (0-10); EOSINOPHILS # (AUTO) 0.5 10^3/uL (0.0-0.3); EOSINOPHILS % (AUTO) 5 % (0-10); HEMATOCRIT 34 % (35-52); HEMOGLOBIN 10.8 g/dL (11.5-16.0); LYMPHOCYTES # (AUTO) 1.9 10^3/uL (1.0-4.0); LYMPHOCYTES % (AUTO) 19 % (12-44); MEAN CORPUSCULAR HEMOGLOBIN 30 pg (25-34); MEAN CORPUSCULAR HGB CONC 32 g/dL (32-36); MEAN CORPUSCULAR VOLUME 94 fL (80-99); MONOCYTES # (AUTO) 1.2 10^3/uL (0.0-1.0); MONOCYTES % (AUTO) 12 % (0-12); NEUTROPHILS # (AUTO) 6.3 10^3/uL (1.8-7.8); NEUTROPHILS % (AUTO) 63 % (42-75); PLATELET COUNT 279 10^3/uL (130-400); WHITE BLOOD COUNT 9.9 10^3/uL (4.3-11.0)
[2022-01-23 06:27] LABS: POTASSIUM 4.3 MMOL/L (3.6-5.0)
[2022-01-23 06:28] LABS: CALCIUM 8.3 MG/DL (8.5-10.1)
[2022-01-23 06:32] LABS: CREATININE SERUM 0.49 MG/DL (0.60-1.30)
[2022-01-23 06:35] LABS: MAGNESIUM 1.9 MG/DL (1.6-2.4)
[2022-01-23 07:29] VITALS: BP 112/60
[2022-01-23] MEDS: DOCUSATE SODIUM 100 MG (COLACE) CAP PO SCH (08:53)
[2022-01-23] MEDS: SENNOSIDES 8.6 MG (SENOKOT) TAB PO SCH (08:53)
[2022-01-23] MEDS: LORATADINE (CLARITIN) 10 MG TAB PO SCH (08:53)
[2022-01-23] MEDS: ENOXAPARIN 40 MG/0.4 ML (LOVENOX) SYR SQ SCH (08:53)
[2022-01-23] MEDS: ALPRAZolam 0.5 MG (XANAX) TAB PO SCH ×2 (08:53→11:53)
[2022-01-23] MEDS: ACETAMINOPHEN 325 MG TABLET PO PRN (08:54)
--- NOTE | 2022-01-23 18:14 | Discharge Summary ---
Discharge Summary Hospital Course Problems/Dx: (1) Pseudomonas urinary tract infection Status: Acute (2) Sepsis due to urinary tract infection Status: Resolved (3) LONNIE (acute kidney injury) Status: Resolved Hospital Course Date of Admission: Jan 20, 2022 at 15:30 Admission Diagnosis : Sepsis due to UTI, LONNIE Family Physician/Provider: Conor Oropeza MD Date of Discharge: 01/23/22 Discharge Diagnosis: Sepsis due to Pseudomonas UTI, LONNIE Hospital Course: Tiffany rGimaldo is a 76 year old female who presented from her [facility] and was admitted with sepsis due to UTI. She also had an LONNIE. She was treated with IV antibiotics and fluids. Cultures returned with Pseudomonas and she was transitioned to Cefepime. The susceptibilities returned with resistance to fluoroquinolones. She requires ongoing antibiotics and nursing care. She was also exposed to COVID by her roommate at the [facility] and will remain in isolation. She was transferred to swing bed status. Labs and Pending Lab Test: Laboratory Tests 01/23/22 05:00: Iron Level [Pending], Total Iron Binding Capacity [Pending], Unsaturated Iron Binding Capacity [Pending], Transferrin % Saturation [Pending], Ferritin [Pending], Vitamin B12 Level [Pending], Folate [Pending] 01/23/22 05:35: White Blood Count 9.9, Red Blood Count 3.57L, Hemoglobin 10.8L, Hematocrit 34L, Mean Corpuscular Volume 94, Mean Corpuscular Hemoglobin 30, Mean Corpuscular Hemoglobin Concent 32, Red Cell Distribution Width 16.0H, Platelet Count 279, Mean Platelet Volume 11.0, Immature Granulocyte % (Auto) 0, Neutrophils (%) (Auto) 63, Lymphocytes (%) (Auto) 19, Monocytes (%) (Auto) 12, Eosinophils (%) (Auto) 5, Basophils (%) (Auto) 1, Neutrophils # (Auto) 6.3, Lymphocytes # (Auto) 1.9, Monocytes # (Auto) 1.2H, Eosinophils # (Auto) 0.5H, Basophils # (Auto) 0.1, Immature Granulocyte # (Auto) 0.0, Sodium Level 139, Potassium Level 4.3, Chloride Level 109H, Carbon Dioxide Level 23, Anion Gap 7, Blood Urea Nitrogen 6L, Creatinine 0.49L, Estimat Glomerular Filtration Rate 97, BUN/Creatinine Ratio 12, Glucose Level 106H, Calcium Level 8.3L, Magnesium Level 1.9 Microbiology 01/20/22 Urine Culture - Final, Complete Pseudomonas aeruginosa 01/20/22 Blood Culture - Preliminary, Resulted No growth Home Meds Active Reported Proair Hfa (Albuterol Sulfate) 1 Puff Puff 2 Puff IH Q6H PRN Ondansetron Odt (Ondansetron) 4 Mg Tab.rapdis 4 Mg PO TID Claritin (Loratadine) 10 Mg Capsule 10 Mg PO DAILY Potassium Chloride 20 Meq Tablet.er 20 Meq PO DAILY Alprazolam 1 Mg Tablet 1 Mg PO TID Tylenol (Acetaminophen) 325 Mg Tablet 650 Mg PO Q8H PRN Assessment/Pt Instructions Transferred to swing bed Discharge Planning: >30 minutes discharge planning Discharge Instructions Discharge Diet: No Restrictions Activity as Tolerated: Yes Discharge Physical Examination Vital Signs Vital Signs Date Time Temp Pulse Resp B/P (MAP) Pulse Ox O2 Delivery O2 Flow Rate FiO2 01/23/22 12:40 114 01/23/22 08:00 Nasal Cannula 2.00 01/23/22 07:52 95 01/23/22 07:29 37.0 18 112/60 (77) General Appearance: No Apparent Distress, Chronically ill Respiratory: Lungs Clear, No Respiratory Distress Cardiovascular: Regular Rate, Rhythm, No Murmur Gastrointestinal: Normal Bowel Sounds Extremity: Normal Inspection, No Pedal Edema Skin: Normal Color, Warm/Dry Neurologic/Psychiatric: Alert, Normal Mood/Affect Allergies: Coded Allergies: No Known Drug Allergies (Unverified , 08/07/13) Copy Copies To 1: CONOR OROPEZA MD Discharge Summary Date of Admission Jan 20, 2022 at 15:30 Date of Discharge Jan 23, 2022 at 14:20 Discharge Date: Jan 23, 2022 Discharge Time: 14:20 Admission Diagnosis Sepsis due to UTI Discharge Diagnosis Pseudomonas UTI Sepsis, resolved LONNIE, resolved (1) Pseudomonas urinary tract infection Status: Acute (2) Sepsis due to urinary tract infection Status: Resolved (3) LONNIE (acute kidney injury) Status: Resolved MARIO PAREDES MD Jan 23, 2022 18:14
[2022-01-27] MEDS ORDERED: MORP100S7 PO ×2 (10:46)
== END 2022-01-23 14:20 | disposition swing bed (61) | DRG 698 ==
LOC: EDUNIT# 12:08 → ER 12:09 → 4TH 15:30
PROVIDERS: ADMIT Internal Medicine; ATTEND Internal Medicine
DX: T83.518A Infection and inflammatory reaction due to other urinary catheter, initial encounter (principal); A41.9 Sepsis, unspecified organism; N39.0 Urinary tract infection, site not specified; N17.9 Acute kidney failure, unspecified; E86.0 Dehydration; Z66 Do not resuscitate; J44.9 Chronic obstructive pulmonary disease, unspecified; B96.5 Pseudomonas (aeruginosa) (mallei) (pseudomallei) as the cause of diseases classified elsewhere; Z20.822 Contact with and (suspected) exposure to COVID-19
CPT/HCPCS: 36415; 51702; 71045; 80048; 80053; 81000; 82607; 82728; 82746; 83540; 83550; 83605; 83735; 85025; 85610; 85730; 87040; 87088; 87186; 87636; 93005

== ENCOUNTER 2022-01-23 08:55 | Inpatient (IN) | payer MEDICARE, MEDICAID ==
[~2022-01-23] VITALS: Ht 165 cm; Wt 58.9 kg
[~2022-01-23 08:55] MED LIST changes: +ACET325T38 PO; +ALPR1TAB7 PO; +LORA10CA PO; +ONDA4TAB11 PO; +POTA-51 PO; +RT-ALBUINH IH
[2022-01-23] MEDS ORDERED: NS IV 500 ML 500 ML IV PRN (14:30)
[2022-01-23] MEDS ORDERED: ONDANSETRON 4 MG (ZOFRAN) ORAL DISSOLVE TAB PO PRN (14:30)
[2022-01-23] MEDS ORDERED: diphenhydrAMINE 50 MG/ML INJ (BENADRYL) IVP PRN (14:30)
[2022-01-23] MEDS ORDERED: CALCIUM CARBONATE 500 MG (TUMS) TAB.CHEW PO PRN (14:30)
[2022-01-23] MEDS ORDERED: ONDANSETRON 4 MG/2 ML (SDV) Z0FRAN IV PRN (14:30)
[2022-01-23] MEDS ORDERED: polyethylene glycoL POWDER 17 GM (MIRALAX) PACK PO PRN (14:30)
[2022-01-23] MEDS ORDERED: diphenhydrAMINE 25 MG TAB (BENADRYL) PO PRN (14:30)
[2022-01-23] MEDS ORDERED: CEFEPIME INJECTION 1,000 MG in NS (IVPB) 50 ML IV SCH (14:30)
[2022-01-23] MEDS ORDERED: MELATONIN 3 MG TABLET PO PRN (14:30)
[2022-01-23] MEDS ORDERED: ANTACID SUSP 30 ML UDC (MYLANTA) PO PRN (14:30)
--- NOTE | 2022-01-23 14:53 | Physical Therapy Progress Note ---
Therapy Progress Note PT received orders for SWB evaluation of patient. Discussed case with Nurse/case manager specialist, and she reports the family informed her that the patient was independent with ADLs until ~ 3 weeks ago. Patient was evaluated on 01/21/22 by this therapist. At that time patient was not appropriate for further Physical Therapy treatment due to being total A with all bed mobility/transfers, report of patient being total A prior to hospital admission, and patient not participa ting fully during evaluation. She was able to sit on the edge of the bed for a few seconds with max A, however then transferred herself back to bed. Patient did demonstrate a left LE hook-lying position with left hip and knee flexion and reports of severe pain with attempted movement. Nurse, Adam, notified during the initial evaluation on 01/21/22. He reports that this is chronic however. Patient may benefit from imaging to rule out further pathology, especially given recent falls. Patient will not be treated by Physical Therapy at this time due to the above listed reasons and nursing/case management notified. CONOR SALOMON PT Jan 23, 2022 14:53
[2022-01-23] MEDS: NS IV 1000 ML 1,000 ML IV SCH (15:05)
--- NOTE | 2022-01-23 15:11 | Occ Therapy Progress Note ---
Therapy Progress Note OT orders received for SWB evaluation. Per chart review and RN/manager bilingualmanager progressive care, family of pt report that prior to spell of illness, she was home with loved ones checking on her. She was able to ambulate, feed, and perform some ADLs. Around 2-3 weeks ago, she transferred to [facility]. Per staff at [facility], pt required jennifer transfer, total assist with ADLs, and pt did not willingly do much at [place], she was able to feed herself with set up assistance when she felt like it. Pt was evaluated on 01/21/22 by this therapist. At that time, pt was not appropriate for skilled OT services due to requiring total assistance with all ADLs and mobility, and pt not participating fulling during OT evaluation. During OT evaluation on 01/21/22, pt was soiled, unaware she was soiled, requiring total assist with rolling side to side to change linens and perform hygiene (2 person assist needed at that time, 1 for rolling and 1 for hygiene). During rolling, stated "Fuck you" multiple times and after positioning pt to comfort, she told this therapist she was going to [place]. Pt is currently at her baseline per staff at [facility], and would not benefit from skilled OT services at this time. OT will discharge pt due to the above listed reasons and nursing/rehabilitation case coordinator notified. ANTHONY DEVINE OT Jan 23, 2022 15:11
[2022-01-23] MEDS: CEFEPIME INJECTION 1,000 MG in NS (IVPB) 50 ML IV SCH ×2 (16:07→23:22)
[2022-01-23 17:58] VITALS: BP 120/59
[2022-01-23 20:05] VITALS: BP 116/59
[2022-01-23] MEDS: ALPRAZolam 0.5 MG (XANAX) TAB PO SCH (21:00)
[2022-01-23] MEDS: DOCUSATE SODIUM 100 MG (COLACE) CAP PO SCH (21:00)
[2022-01-23] MEDS: SENNOSIDES 8.6 MG (SENOKOT) TAB PO SCH (21:00)
[2022-01-24] MEDS: NS IV 1000 ML 1,000 ML IV SCH ×2 (00:57→15:35)
[2022-01-24] MEDS: POTASSIUM CL 10MEQ/50ML IVPB 50 ML IV SCH (06:00)
[2022-01-24] MEDS: KCL 20 MEQ TAB (K-DUR) PO SCH (06:00)
[2022-01-24] MEDS: MAGNESIUM 1 GM/100 ML IVPB 100 ML IV SCH ×3 (06:00→09:03)
[2022-01-24 06:16] LABS: POTASSIUM 3.8 MMOL/L (3.6-5.0)
[2022-01-24 06:17] LABS: CALCIUM 8.3 MG/DL (8.5-10.1)
[2022-01-24 06:21] LABS: CREATININE SERUM 0.49 MG/DL (0.60-1.30)
[2022-01-24 06:24] LABS: MAGNESIUM 1.6 MG/DL (1.6-2.4)
[2022-01-24] MEDS: SENNOSIDES 8.6 MG (SENOKOT) TAB PO SCH ×2 (07:49→21:08)
[2022-01-24 08:26] VITALS: BP 118/59
[2022-01-24] MEDS: DOCUSATE SODIUM 100 MG (COLACE) CAP PO SCH ×2 (09:03→21:08)
[2022-01-24] MEDS: ACETAMINOPHEN 325 MG TABLET PO PRN (09:03)
[2022-01-24] MEDS: ALPRAZolam 0.5 MG (XANAX) TAB PO SCH ×3 (09:03→21:08)
[2022-01-24] MEDS: CEFEPIME INJECTION 1,000 MG in NS (IVPB) 50 ML IV SCH ×2 (09:03→15:35)
[2022-01-24] MEDS: ENOXAPARIN 40 MG/0.4 ML (LOVENOX) SYR SQ SCH (09:03)
[2022-01-24] MEDS: LORATADINE (CLARITIN) 10 MG TAB PO SCH (09:03)
[2022-01-24 16:29] VITALS: BP 115/56
--- NOTE | 2022-01-24 19:38 | Progress Note - Hospitalist ---
Subjective HPI/CC On Admission Date Seen by Provider: Jan 24, 2022 Time Seen by Provider: 12:00 Subjective/Events-last exam She has no complaints or concerns. Objective Exam Vital Signs Vital Signs Date Time Temp Pulse Resp B/P (MAP) Pulse Ox O2 Delivery O2 Flow Rate FiO2 01/24/22 08:26 36.7 105 18 118/59 (78) 96 Nasal Cannula 1.50 Capillary Refill : General Appearance: No Apparent Distress, Chronically ill Respiratory: Lungs Clear, No Respiratory Distress Cardiovascular: Regular Rate, Rhythm, No Murmur Gastrointestinal: Normal Bowel Sounds, Soft Extremity: Normal Inspection, No Pedal Edema Neurologic/Psychiatric: Alert, Motor Weakness Results/Procedures Lab Laboratory Tests 01/24/22 05:55 Patient resulted labs reviewed. Assessment/Plan Assessment and Plan Assess & Plan/Chief Complaint Pseudomonas UTI Urine culture with Pseudomonas, resistant to Levaquin Continue Cefepime Swing bed COVID exposure Roommate at retirement Isolation Initial testing negative Asymptomatic Repeat testing tomorrow, if negative remove isolation DVT prophylaxis: Lovenox Diagnosis/Problems Diagnosis/Problems (1) Pseudomonas urinary tract infection Status: Acute (2) Exposure to COVID-19 virus Status: Acute MARIO PAREDES MD Jan 24, 2022 19:38
[2022-01-24 19:45] VITALS: BP 115/56
[2022-01-25] MEDS: CEFEPIME INJECTION 1,000 MG in NS (IVPB) 50 ML IV SCH ×3 (00:17→16:08)
[2022-01-25] MEDS: NS IV 1000 ML 1,000 ML IV SCH ×2 (05:42→21:28)
[2022-01-25] MEDS: MAGNESIUM 1 GM/100 ML IVPB 100 ML IV SCH (06:00)
[2022-01-25] MEDS: KCL 20 MEQ TAB (K-DUR) PO SCH ×4 (06:00→12:13)
[2022-01-25] MEDS: POTASSIUM CL 10MEQ/50ML IVPB 50 ML IV SCH (06:00)
[2022-01-25 07:36] VITALS: BP 103/57
[2022-01-25] MEDS: SENNOSIDES 8.6 MG (SENOKOT) TAB PO SCH ×2 (09:39→21:27)
[2022-01-25] MEDS: LORATADINE (CLARITIN) 10 MG TAB PO SCH (09:39)
[2022-01-25] MEDS: DOCUSATE SODIUM 100 MG (COLACE) CAP PO SCH ×2 (09:39→21:27)
[2022-01-25] MEDS: ALPRAZolam 0.5 MG (XANAX) TAB PO SCH ×3 (09:39→21:27)
[2022-01-25] MEDS: ENOXAPARIN 40 MG/0.4 ML (LOVENOX) SYR SQ SCH (09:40)
[2022-01-25 11:00] VITALS: BP 98/50
[2022-01-25 16:15] VITALS: BP 103/51
[2022-01-25] MEDS: ACETAMINOPHEN 325 MG TABLET PO PRN (18:23)
[2022-01-25 20:00] VITALS: BP 101/52
[2022-01-26] MEDS: CEFEPIME INJECTION 1,000 MG in NS (IVPB) 50 ML IV SCH ×3 (00:01→16:25)
[2022-01-26 06:11] LABS: POTASSIUM 4.1 MMOL/L (3.6-5.0)
[2022-01-26 06:12] LABS: CALCIUM 8.2 MG/DL (8.5-10.1)
[2022-01-26 06:16] LABS: CREATININE SERUM 0.4 MG/DL (0.60-1.30)
[2022-01-26] MEDS: KCL 20 MEQ TAB (K-DUR) PO SCH (06:18)
[2022-01-26] MEDS: POTASSIUM CL 10MEQ/50ML IVPB 50 ML IV SCH (06:18)
[2022-01-26 06:19] LABS: MAGNESIUM 1.5 MG/DL (1.6-2.4)
[2022-01-26] MEDS: MAGNESIUM 1 GM/100 ML IVPB 100 ML IV SCH ×3 (06:47→08:46)
[2022-01-26 07:28] VITALS: BP 123/57
[2022-01-26] MEDS: LORATADINE (CLARITIN) 10 MG TAB PO SCH (08:47)
[2022-01-26] MEDS: DOCUSATE SODIUM 100 MG (COLACE) CAP PO SCH (08:47)
[2022-01-26] MEDS: ALPRAZolam 0.5 MG (XANAX) TAB PO SCH ×2 (08:47→12:33)
[2022-01-26] MEDS: SENNOSIDES 8.6 MG (SENOKOT) TAB PO SCH (08:47)
[2022-01-26] MEDS: ENOXAPARIN 40 MG/0.4 ML (LOVENOX) SYR SQ SCH (08:49)
[2022-01-26] MEDS: NS IV 1000 ML 1,000 ML IV SCH (09:46)
[2022-01-26] MEDS: ACETAMINOPHEN 325 MG TABLET PO PRN (09:47)
[2022-01-26 16:29] VITALS: BP 113/55
[2022-01-26] MEDS ORDERED: LORazepam 1 MG (ATIVAN) TAB SL PRN (17:00)
[2022-01-26] MEDS ORDERED: ACETAMINOPHEN 650 MG SUPP (TYLENOL) PR PRN (17:00)
[2022-01-26] MEDS ORDERED: SCOPOLAMINE 1.5 MG (TRANSDERM-SCOP) PATCH TOP SCH (17:00)
[2022-01-26] MEDS ORDERED: BISACODYL 10 MG SUPP (DULCOLAX) PR PRN (17:00)
[2022-01-26] MEDS ORDERED: PROMETHAZINE INJ 25 MG/ML (PHENERGAN) AMP IVP PRN (17:00)
[2022-01-26] MEDS ORDERED: ARTIFICAL TEARS 0.4 ML UNIT DOSE (REFRESH PLUS) OU PRN (17:00)
[2022-01-26] MEDS ORDERED: RT-ALBUTEROL/IPRATROPIUM 3 ML (DUONEB) VIAL INH PRN (17:00)
[2022-01-26] MEDS ORDERED: GLYCOPYRROLATE 0.2 MG/ML (ROBINUL) 2 ML VIAL IV PRN (17:00)
[2022-01-26] MEDS ORDERED: LIDOCAINE UROJET 2% GEL 10 ML PKG TOP ONE (17:00)
[2022-01-26] MEDS ORDERED: SALIVA STIMULANT MOUTH SPRAY (BIOTENE) 1.5 OZ MM PRN (17:00)
[2022-01-26] MEDS ORDERED: ONDANSETRON 4 MG/2 ML (SDV) Z0FRAN IVP PRN (17:00)
[2022-01-26] MEDS: morphine INJ 4 MG/ML 1 ML (VIAL/SYRINGE) IV PRN (20:34)
[2022-01-27] MEDS: CEFEPIME INJECTION 1,000 MG in NS (IVPB) 50 ML IV SCH ×2 (00:30→08:36)
[2022-01-27] MEDS: morphine INJ 4 MG/ML 1 ML (VIAL/SYRINGE) IV PRN ×3 (02:29→14:45)
[2022-01-27] MEDS ORDERED: MORP100S7 PO ×2 (10:46)
--- NOTE | 2022-01-27 10:55 | Discharge Inst-Simple/Standard ---
Discharge Inst-Standard Discharge Medications New, Converted or Re-Newed RX: Transmitted to Pharmacy Patient Instructions/Follow Up Plan of Care/Instructions/FU: Please continue to take your medications as written. Please follow up with your PCP as needed and with hospice. Activity as Tolerated: Yes Discharge Diet: No Restrictions Return to The Hospital For: Chest pain, shortness of breath, fever, weakness, if you feel you are getting worse. VERENA FOLEY MD Jan 27, 2022 10:53
--- NOTE | 2022-01-27 10:56 | Discharge Summary ---
Diagnosis/Chief Complaint Date of Admission Jan 23, 2022 at 14:36 Date of Discharge Discharge Date: Jan 27, 2022 Primary Care Lencho Perdomo MD Discharge Diagnosis (1) Pseudomonas urinary tract infection Status: Acute (2) Exposure to COVID-19 virus Status: Acute Discharge Summary Discharge Physical Exam Allergies: Coded Allergies: No Known Drug Allergies (Unverified , 08/07/13) Vitals & I&Os Vital Signs Date Time Temp Pulse Resp B/P (MAP) Pulse Ox O2 Delivery O2 Flow Rate FiO2 01/27/22 07:09 Nasal Cannula 1.00 01/26/22 16:29 35.9 96 16 113/55 (74) 81 Hospital Course Labs (last 24 hrs) Patient resulted labs reviewed. Discharge Home Medications: Active Scripts Active Morphine Conc. 20mg/ml (Morphine Sulfate) 100 Mg/5 Ml (20 Mg/Ml) Solution 5 Mg PO Q2H PRN 7 Days Reported Proair Hfa (Albuterol Sulfate) 1 Puff Puff 2 Puff IH Q6H PRN Ondansetron Odt (Ondansetron) 4 Mg Tab.rapdis 4 Mg PO TID Claritin (Loratadine) 10 Mg Capsule 10 Mg PO DAILY Potassium Chloride 20 Meq Tablet.er 20 Meq PO DAILY Alprazolam 1 Mg Tablet 1 Mg PO TID Tylenol (Acetaminophen) 325 Mg Tablet 650 Mg PO Q8H PRN Instructions to patient/family Please see electronic discharge instructions given to patient. VERENA FOLEY MD Jan 27, 2022 10:56
== END 2022-01-27 15:00 | DRG 690 ==
LOC: 4TH 14:36
PROVIDERS: ADMIT Internal Medicine; ATTEND Family Medicine
DX: N39.0 Urinary tract infection, site not specified (principal); B96.5 Pseudomonas (aeruginosa) (mallei) (pseudomallei) as the cause of diseases classified elsewhere; Z20.822 Contact with and (suspected) exposure to COVID-19; Z66 Do not resuscitate; Z51.5 Encounter for palliative care
CPT/HCPCS: 36415; 80048; 83735; 84132; 87636; 94760